=== PATIENT | female | born 1935 | race Two or more races ===

== ENCOUNTER 2016-11-06 20:14 | Observation (INO) | payer BC ==
--- NOTE | 2016-11-06 20:17 | PDOC ---
History of Present Illness - History of Present Illness Initial Comments: 11/06/16 20:57 The patient is an 81-year-old female, with a significant past medical history of HLD, who presents to the ED with AMS today. As per son, pt was sitting at the table in conversation with his when she suddenly became unresponsive and began to experience arm tremors. Ambulance was called. While on the way to the ER, the pts BS was measured to be 232 and her BP was 180/100. HPI is limited because pt is unresponsive. <Sarah Galloway - Last Filed: 11/06/16 20:59> <Estefani Warner - Last Filed: 11/06/16 23:14> - General Stated Complaint: POSSIBLE STROKE Time Seen by Provider: 11/06/16 20:17 Past History <Sarah Galloway - Last Filed: 11/06/16 20:59> - Past Medical History Hypercholesterolemia: Yes - Psycho/Social/Smoking Cessation Hx Anxiety: No Suicidal Ideation: No Smoking History: Never smoked Hx Alcohol Use: No Substance Use Type: None <Estefani Warner - Last Filed: 11/06/16 23:14> - Past Medical History Allergies/Adverse Reactions: Allergies Allergy/AdvReac Type Severity Reaction Status Date / Time No Known Allergies Allergy Verified 11/06/16 20:17 Home Medications: Ambulatory Orders Simvastatin [Zocor -] 20 mg PO DAILY 01/02/15 Zolpidem Tartrate [Ambien] 10 mg PO HS 11/06/16 Review of Systems - Review of Systems Able to Perform ROS?: No Comments:: 11/06/16 20:57 ROS unable to obtain because pt is unresponsive. <Sarah Galloway - Last Filed: 11/06/16 20:59> *Physical Exam - Vital Signs Last Vital Signs Temp Pulse Resp BP Pulse Ox 58 L 18 134/55 97 11/06/16 20:18 11/06/16 20:18 11/06/16 20:18 11/06/16 20:18 <Sarah Galloway - Last Filed: 11/06/16 20:59> - Physical Exam Comments: GENERAL: Somnolent. Responds to noxious stimuli. HEAD: No signs of trauma EYES: Pupils small but reactive, EOMI, sclera anicteric, conjunctiva clear ENT: Auricles normal inspection, hearing grossly normal, nares patent, oropharynx clear without exudates. Moist mucosa NECK: Normal ROM, supple, no lymphadenopathy, JVD, or masses LUNGS: Breath sounds equal, clear to auscultation bilaterally. No wheezes, and no crackles HEART: Regular rate and rhythm, normal S1 and S2, no murmurs, rubs or gallops ABDOMEN: Soft, nontender, normoactive bowel sounds. No guarding, no rebound. No masses EXTREMITIES: Normal range of motion, no edema. No clubbing or cyanosis. No cords, erythema, or tenderness NEUROLOGICAL: Limited by AMS. Pupils small but reactive. Withdraws all 4 limbs to noxious stimuli. SKIN: Warm, Dry, normal turgor, no rashes or lesions noted. <Estefani Warner - Last Filed: 11/06/16 23:14> ED Treatment Course - LABORATORY CBC & Chemistry Diagram: 11/06/16 20:48 11/06/16 20:48 - RADIOLOGY Radiology Studies Ordered: 11/06/16 21:[address] was reviewed by Dr. Warner and over-read by Radiology. Impression: No evidence of an acute intracranial process, intracranial hemorrhage or mass effect. <Sarah Galloway - Last Filed: 11/06/16 20:59> - LABORATORY CBC & Chemistry Diagram: 11/06/16 20:48 11/06/16 20:48 <Estefani Warner - Last Filed: 11/06/16 23:14> Medical Decision Making - Medical Decision Making 11/06/16 21:26 Reassessed. CTH reviewed, no acute findings. Patient is improving, clinically. She is speaking, awakens to voice. Will cont to monitor. Plan to admit for AMS- poss syncope vs seizure. <Estefani Warner - Last Filed: 11/06/16 23:14> *DC/Admit/Observation/Transfer - Attestations Scribe Attestion: 11/06/16 20:58 Documentation prepared by Sarah Galloway, acting as family practice medical doctor for Estefani Warner MD. <Sarah Galloway - Last Filed: 11/06/16 20:59> - Discharge Dispostion Admit: Yes <Estefani Warner - Last Filed: 11/06/16 23:14> Diagnosis at time of Disposition: Altered mental status Qualifiers: Altered mental status type: unspecified Qualified Code(s): R41.82 - Altered mental status, unspecified Syncope Qualifiers: Syncope type: unspecified Qualified Code(s): R55 - Syncope and collapse - Discharge Dispostion Condition at time of disposition: Stable - Referrals Referrals: Wander Gupta MD [Primary Care Provider] -
[2016-11-06 20:19] VITALS: BMI 18.3
[2016-11-06 20:55] LABS: MCH 28.9 pg (25.7-33.7); MEAN CELL VOLUME 87.8 fl (80-96); MEAN PLT VOLUME 8.5 fl (7.5-11.1); PLATELET COUNT 192 K/MM3 (134-434); RDW 14.5 % (11.6-15.6); WHITE BLOOD COUNT 7.5 K/mm3 (4.0-10.0)
[2016-11-06 21:16] LABS: INR 1.04 (0.82-1.09); PROTHROMBIN TIME (PATIENT) 11.5 SEC (9.98-11.88)
[2016-11-06 21:27] LABS: ALBUMIN 3.4 g/dl (3.4-5.0); ANION GAP 6 (8-16); CO2 31 mmol/L (21-32); COCKROFT - GAULT 33.9065; CREATININE 0.9 mg/dL (0.55-1.02); GLUCOSE,RANDOM 157 mg/dL (74-106); SGOT/AST 19 U/L (15-37); SGPT/ALT 14 U/L (12-78)
[2016-11-06 21:31] LABS: ALK PHOS 58 U/L (45-117); BILIRUBIN,TOTAL 0.3 mg/dL (0.2-1.0); TOT PROT 7.1 g/dl (6.4-8.2); TROPONIN I < 0.02 ng/ml (0.00-0.05)
[2016-11-06 23:21] LABS: URINE APPEARANCE CLEAR; URINE BILIRUBIN NEGATIVE (NEGATIVE); URINE BLOOD 1+ (NEGATIVE); URINE COLOR STRAW; URINE GLUCOSE (UA) 1+ (NEGATIVE); URINE KETONE NEGATIVE (NEGATIVE); URINE LEUK ESTERASE NEGATIVE (NEGATIVE); URINE NITRITE NEGATIVE (NEGATIVE); URINE PROTEIN NEGATIVE (NEGATIVE); URINE UROBILINOGEN NEGATIVE E.U./dl (0.2-1.0)
[2016-11-06 23:22] LABS: URINE WBC 1 /hpf (3-5)
[2016-11-07 07:12] LABS: BASOPHIL 1.3 % (0-2.0); EOSINOPHIL 9.1 % (0-4.5); MCH 29.6 pg (25.7-33.7); MEAN CELL VOLUME 87.1 fl (80-96); MEAN PLT VOLUME 8.3 fl (7.5-11.1); PLATELET COUNT 194 K/MM3 (134-434); RDW 14.5 % (11.6-15.6); WHITE BLOOD COUNT 7.9 K/mm3 (4.0-10.0)
[2016-11-07 08:13] LABS: ALBUMIN 3.2 g/dl (3.4-5.0); ALK PHOS 53 U/L (45-117); ANION GAP 8 (8-16); BILIRUBIN,TOTAL 0.5 mg/dL (0.2-1.0); CALCIUM 8.7 mg/dL (8.5-10.1); CO2 30 mmol/L (21-32); CREATININE 0.8 mg/dL (0.55-1.02); GLUCOSE,RANDOM 79 mg/dL (74-106); SGOT/AST 17 U/L (15-37); SGPT/ALT 16 U/L (12-78); TOT PROT 6.5 g/dl (6.4-8.2); TROPONIN I < 0.02 ng/ml (0.00-0.05)
--- NOTE | 2016-11-07 14:09 | EKG ---
Test Reason : Blood Pressure : / mmHG Vent. Rate : 051 BPM Atrial Rate : 051 BPM P-R Int : 184 ms QRS Dur : 096 ms QT Int : 410 ms P-R-T Axes : 077 -14 060 degrees QTc Int : 377 ms SINUS BRADYCARDIA LIKELY NORMAL ECG BORDERLINE ECG WHEN COMPARED WITH ECG OF 02-JAN-2015 14:30, NO SIGNIFICANT CHANGE WAS FOUND Confirmed by KALIA MARIANO MD ([id number]) on 11/07/2016 2:08:53 PM Referred By: Confirmed By:KALIA MARIANO MD
--- NOTE | 2016-11-07 14:56 | HP ---
Admitting History and Physical - Primary Care Physician PCP: Thomas Ramos - Admission Chief Complaint: change of ms. nassar ? History of Present Illness: 81-year-old female, with a significant past medical history of HLD, who presents to the ED with AMS today. As per son, pt was sitting at the table in conversation with his when she suddenly became unresponsive and began to experience arm tremors. Ambulance was called. While on the way to the ER, the pt s BS was measured to be 232 and her BP was 180/100. above history taken from er today pt is stable alert and oriented - Past Medical History Cardiovascular: Yes: Hyperlipdemia Psych: Yes: Depression - Smoking History Smoking history: Never smoked Have you smoked in the past 12 months: No - Alcohol/Substance Use Hx Alcohol Use: No Home Medications - Allergies Allergies/Adverse Reactions: Allergies Allergy/AdvReac Type Severity Reaction Status Date / Time No Known Allergies Allergy Verified 11/06/16 20:17 - Home Medications Home Medications: Ambulatory Orders Simvastatin [Zocor -] 20 mg PO DAILY 01/02/15 Zolpidem Tartrate [Ambien] 10 mg PO HS 11/06/16 Sertraline HCl [Zoloft -] 50 mg PO HS 11/07/16 Physical Examination Vital Signs: Vital Signs Temperature 97.1 F L 11/07/16 14:51 Pulse Rate 73 11/07/16 14:51 Respiratory Rate 18 11/07/16 14:51 Blood Pressure 108/60 11/07/16 14:51 O2 Sat by Pulse Oximetry (%) 100 11/07/16 14:20 Constitutional: Yes: No Distress HENT: Yes: Atraumatic Neck: Yes: Supple Cardiovascular: Yes: Regular Rate and Rhythm Respiratory: Yes: CTA Bilaterally Gastrointestinal: Yes: Normal Bowel Sounds Extremities: Yes: WNL Neurological: Yes: Alert, Oriented Labs: CBC, BMP 11/07/16 06:15 11/07/16 06:15 Imaging - Results Chest X-ray: Report Reviewed Cat Scan: Report Reviewed Problem List - Problems (1) Altered mental status Assessment/Plan: dooing well d/d medication seizure infetion r/o cardiac causes fu labs neuro consult Code(s): R41.82 - ALTERED MENTAL STATUS, UNSPECIFIED Qualifiers: Altered mental status type: unspecified Qualified Code(s): R41.82 - Altered mental status, unspecified (2) Syncope Assessment/Plan: d/d as above alert now Code(s): R55 - SYNCOPE AND COLLAPSE Qualifiers: Syncope type: unspecified Qualified Code(s): R55 - Syncope and collapse Assessment/Plan Laboratory Tests 11/06/16 11/06/16 11/06/16 20:48 20:48 20:48 WBC 7.5 RBC 4.21 Hgb 12.2 Hct 37.0 MCV 87.8 MCHC 33.0 RDW 14.5 Plt Count 192 MPV 8.5 Neutrophils % 52.0 Lymphocytes % 27.7 Monocytes % 9.3 Eosinophils % 10.0 H Basophils % 1.0 INR 1.04 Sodium 139 Potassium 3.5 Chloride 102 Carbon Dioxide 31 D Anion Gap 6 L BUN 21 H Creatinine 0.9 D Creat Clearance w eGFR 59.80 Random Glucose 157 H D Calcium 9.0 Total Bilirubin 0.3 D AST 19 D ALT 14 Alkaline Phosphatase 58 Creatine Kinase 51 Troponin I < 0.02 Total Protein 7.1 Albumin 3.4 Urine Color Urine Appearance Urine pH Urine Protein Urine Glucose (UA) Urine Ketones Urine Blood Urine Nitrite Urine Bilirubin Urine Urobilinogen Ur Leukocyte Esterase Urine RBC Urine WBC Ur Epithelial Cells 11/06/16 11/07/16 11/07/16 23:15 06:15 06:15 WBC 7.9 RBC 4.22 Hgb 12.5 Hct 36.7 MCV 87.1 MCHC 34.0 RDW 14.5 Plt Count 194 MPV 8.3 Neutrophils % 52.0 Lymphocytes % 28.5 Monocytes % 9.1 Eosinophils % 9.1 H Basophils % 1.3 INR Sodium 142 Potassium 4.2 Chloride 104 Carbon Dioxide 30 Anion Gap 8 BUN 19 H Creatinine 0.8 Creat Clearance w eGFR > 60 Random Glucose 79 D Calcium 8.7 Total Bilirubin 0.5 D AST 17 ALT 16 Alkaline Phosphatase 53 Creatine Kinase 45 Troponin I < 0.02 Total Protein 6.5 Albumin 3.2 L Urine Color Straw Urine Appearance Clear Urine pH 7.0 Urine Protein Negative Urine Glucose (UA) 1+ H Urine Ketones Negative Urine Blood 1+ H Urine Nitrite Negative Urine Bilirubin Negative Urine Urobilinogen Negative Ur Leukocyte Esterase Negative Urine RBC None Urine WBC 1 Ur Epithelial Cells Rare
--- NOTE | 2016-11-07 18:14 | CON.NEURO ---
Consult Consult Specialty:: Neurology - History of Present Illness History of Present Illness: 81-year-old female, with a significant past medical history of HLD, who presents to the ED with AMS today. As per son, pt was sitting at the table in conversation with his when she suddenly became unresponsive and began to experience arm tremors. Ambulance was called. While on the way to the ER, the pt s BS was measured to be 232 and her BP was 180/100. On further HX, patient states she accidentally took AMBIEN 2 x 10mg pills-- she thought she was taking her dementia RX. Now awake and at her baseline. No focal c/o. - History Source History Provided By: Patient, Family Member - Alcohol/Substance Use Hx Alcohol Use: No - Smoking History Smoking history: Never smoked Have you smoked in the past 12 months: No Home Medications - Allergies Allergies/Adverse Reactions: Allergies Allergy/AdvReac Type Severity Reaction Status Date / Time No Known Allergies Allergy Verified 11/06/16 20:17 - Home Medications Home Medications: Ambulatory Orders Simvastatin [Zocor -] 20 mg PO DAILY 01/02/15 Zolpidem Tartrate [Ambien] 10 mg PO HS 11/06/16 Sertraline HCl [Zoloft -] 50 mg PO HS 11/07/16 Review of Systems Unable to obtain ROS, reason: mild memory loss Physical Exam-Neuro Vital Signs: Vital Signs Temperature 98.3 F 11/07/16 18:00 Pulse Rate 65 11/07/16 18:00 Respiratory Rate 18 11/07/16 18:00 Blood Pressure 120/78 11/07/16 18:00 O2 Sat by Pulse Oximetry (%) 100 11/07/16 14:20 Constitutional: Yes: Well Nourished, No Distress Neck: Yes: WNL Cardiovascular: Yes: Regular Rate and Rhythm Respiratory: Yes: CTA Bilaterally Gastrointestinal: Yes: Normal Bowel Sounds Labs: CBC, BMP 11/07/16 06:15 11/07/16 06:15 INR, PTT INR 1.04 (0.82-1.09) 11/06/16 20:48 - Neuro Exam Level Of Consciousness: Yes: Alert, Oriented to Person, Oriented to Place Eyes: Yes: PERRLA Speech: WNL Mini Mental Exam: awake and conversive, follows 3 steps, no aphasia Babinski: Absent Response to pain prick: Normal Response to temperature: Normal Motor Strength: 5/5: Left Arm, Right Arm, Left Leg, Right Leg Gait: Deferred NIH Stroke Scale - Total Score NIH Stroke Scale Score: 0 Imaging - Results Cat Scan: Report Reviewed, Image Reviewed Problem List - Problems (1) Altered mental status Code(s): R41.82 - ALTERED MENTAL STATUS, UNSPECIFIED Qualifiers: Altered mental status type: unspecified Qualified Code(s): R41.82 - Altered mental status, unspecified (2) Syncope Code(s): R55 - SYNCOPE AND COLLAPSE Qualifiers: Syncope type: unspecified Qualified Code(s): R55 - Syncope and collapse Assessment/Plan 81-year-old female, with a significant past medical history of HLD, who presents to the ED with AMS today. As per son, pt was sitting at the table in conversation with his when she suddenly became unresponsive and began to experience arm tremors. Ambulance was called. While on the way to the ER, the pt s BS was measured to be 232 and her BP was 180/100. On further HX, patient states she accidentally took AMBIEN 2 x 10mg pills-- she thought she was taking her dementia RX. Now awake and at her baseline. No focal c/o. CT HD (-) Syncope/ unresponsive state- secondary to Medication Effect - Ambien, discussed med compliance. Family at bedside, and aware as well. she is neurolgically stable and can be Dc in AM. Dr Bond [phone]
[2016-11-07 20:18] VITALS: BP 125/59; PULSE 52; TEMP 98.1
--- NOTE | 2016-11-07 20:19 | DS ---
Physical Examination Vital Signs: Vital Signs Temperature 98.1 F 11/07/16 20:14 Pulse Rate 52 L 11/07/16 20:14 Respiratory Rate 18 11/07/16 20:14 Blood Pressure 125/59 11/07/16 20:14 O2 Sat by Pulse Oximetry (%) 100 11/07/16 20:14 Constitutional: Yes: No Distress HENT: Yes: Atraumatic Neck: Yes: Supple Cardiovascular: Yes: Regular Rate and Rhythm Respiratory: Yes: CTA Bilaterally Gastrointestinal: Yes: Normal Bowel Sounds Extremities: Yes: WNL Neurological: Yes: Alert, Oriented Labs: CBC, BMP 11/07/16 06:15 11/07/16 06:15 Discharge Summary Reason For Visit: SYNCOPE,ALTERED MENTAL STATUS Current Active Problems Altered mental status (Acute) Syncope (Acute) Condition: Stable - Instructions Referrals: Wander Gupta MD [Primary Care Provider] - Douglas Bond DO [Staff Physician] - - Home Medications Comprehensive Discharge Medication List: Ambulatory Orders Simvastatin [Zocor -] 20 mg PO DAILY 01/02/15 Sertraline HCl [Zoloft -] 50 mg PO HS 11/07/16 neuro note reviewed cleared to be dc pt is stable dc aram castellano pmd/neuro as out pt
[2016-11-07] MEDS ORDERED: SERTRALINE HCL 50 MG TABLET (FP) PO SCH (22:00)
[2016-11-07] MEDS ORDERED: ATORVASTATIN CA 10 MG TABLET (FP) PO SCH (22:00)
== END 2016-11-07 20:57 | disposition home or self-care (01) ==
LOC: JER 20:14 → INTOOBSV 23:14 → JERBED 23:14 → J4W 11-07 14:37
PROVIDERS: ADMIT Internal Medicine; ATTEND Internal Medicine
DX: R41.82 Altered mental status, unspecified (principal); R55 Syncope and collapse; E78.5 Hyperlipidemia, unspecified
CPT/HCPCS: 36415; 70450-TC; 71010-TC; 80053; 81003; 81015; 82550; 84484; 85025; 85610; 93005; 93010; 99282-25; G0378

== ENCOUNTER 2017-01-10 12:13 | Emergency (ER) | payer BC ==
--- NOTE | 2017-01-10 12:21 | PDOC ---
History of Present Illness - General Chief Complaint: Syncope/Near Syncope Stated Complaint: POSSIBLE SYNCOPE Time Seen by Provider: 01/10/17 12:20 - History of Present Illness Initial Comments: 01/10/17 14:12 Chief complaint: Loss of consciousness History of present illness: Patient was walking outside with her daughter, felt faint, collapsed in her daughter's arms, regaining consciousness in 2 or 3 minutes. No confusion or other mental status change after the episode, according to her daughter. However, the patient has no recall of the event. She did not fall, and consequently there were no injuries to the head or neck trunk or extremities. The patient has mild nausea at present but no other symptoms and denies pain. Review of systems: Denies lightheadedness, dizziness, vertigo, chest pain, shortness of breath, abdominal pain, vomiting, diarrhea, urinary tract symptoms , vaginal bleeding or discharge, decreased or blurred vision, visual or focal neurologic symptoms. Remainder systems reviewed and found to be negative Past medical history: Dementia. Elevated cholesterol. Mood disorder. On atorvastatin and Zoloft. Daughter denies any cardiac disease including ME, CVA, TIA, syncope, diabetes, or cancer Social history: Lives with her daughter's family, appetite and fluid intake appear to be adequate, no recent illnesses, no tobacco alcohol or nonprescription drugs Family history reviewed and noncontributory Physical exam: Mildly confused as to time and place but responsive and answers questions coherently. No distress. Afebrile, vital signs normal Head atraumatic. PERRLA, fundi benign, ENT clear Neck supple without bruit mass or nodes Chest clear to P&A with full breath sounds throughout bilaterally CV regular without murmur rub or gallop pulses full and symmetric no JVD or edema 61 and regular Abdomen soft nontender without mass or organomegaly. Nondistended, bowel sounds normal Neurological generalized weakness but no focal sensory or motor deficits. Cranial nerves intact. Extremities no CCE Skin clear, no rash, adequate turgor and wet mucous membranes Impression: Syncope, possibly vasovagal, rule out dehydration, orthostatic hypotension, acute neurologic or cardiac event Plan: EKG and enzymes, head CT, CBC and chemistries, observation and further medical treatment depending on results. Past History - Past Medical History Allergies/Adverse Reactions: Allergies Allergy/AdvReac Type Severity Reaction Status Date / Time No Known Allergies Allergy Verified 01/10/17 12:33 Home Medications: Ambulatory Orders Sertraline HCl [Zoloft -] 50 mg PO HS 11/07/16 Atorvastatin Ca [Lipitor] 20 mg PO HS 01/10/17 Hypercholesterolemia: Yes - Immunization History Immunization Up to Date: No - Psycho/Social/Smoking Cessation Hx Anxiety: No Suicidal Ideation: No Smoking History: Never smoked Have you smoked in the past 12 months: No Hx Alcohol Use: No Drug/Substance Use Hx: No Substance Use Type: None *Physical Exam - Vital Signs Last Vital Signs Temp Pulse Resp BP Pulse Ox 60 18 135/76 99 01/10/17 15:50 01/10/17 15:50 01/10/17 15:50 01/10/17 15:50 ED Treatment Course - LABORATORY CBC & Chemistry Diagram: 01/10/17 12:29 01/10/17 12:29 - ADDITIONAL ORDERS Additional order review: Laboratory Results 01/10/17 01/10/17 01/10/17 12:44 12:29 12:29 Sodium 135 L Potassium 3.6 Chloride 102 Carbon Dioxide 24 Anion Gap 9 BUN 25 H Creatinine 0.9 Creat Clearance w eGFR 59.80 Random Glucose 114 H Calcium 9.3 Total Bilirubin 0.8 AST 21 ALT 12 Alkaline Phosphatase 50 Creatine Kinase 38 Troponin I < 0.03 L Total Protein 7.1 Albumin 4.2 Urine Color Yellow Urine Appearance Clear Urine pH 7.0 Ur Specific Effort 1.020 Urine Protein Negative Urine Glucose (UA) Negative Urine Ketones Negative Urine Blood Negative Urine Nitrite Negative Urine Bilirubin Negative Urine Urobilinogen 0.2 Ur Leukocyte Esterase Negative 01/10/17 12:29 RBC 4.57 MCV 85.8 MCHC 33.5 RDW 13.6 MPV 9.1 Neutrophils % 38.6 L Lymphocytes % 47.9 H Monocytes % 8.8 Eosinophils % 3.9 Basophils % 0.8 - RADIOLOGY Radiology Studies Ordered: Category Date Time Status HEAD CT WITHOUT CONTRAST [CT] Stat CT Scan 01/10/17 12:44 Completed - Medications Given in the ED: ED Medications Discontinued Medications Generic Name Dose Route Start Last Admin Trade Name Freq PRN Reason Stop Dose Admin Sodium Chloride 500 mls @ 500 mls/hr 01/10/17 12:45 01/10/17 12:48 Normal Saline - IV 01/10/17 13:44 500 mls/hr ASDIR STA Administration Ondansetron HCl 4 mg 01/10/17 12:45 01/10/17 12:49 Zofran Injection IVPB 01/10/17 12:46 4 mg ONCE ONE Administration Medical Decision Making - Medical Decision Making 01/10/17 16:42 CT of the brain is negative Labs unremarkable except for elevated BUN, likely dehydration The patient is much more alert cheerful and cooperative after intravenous hydration. The nausea has resolved. She is interactive and engaging smiling and according to her daughter has normal mental status. Discharge fully ambulatory and in no pain or other distress to follow-up with primary physician or return to ER if there are any further symptoms *DC/Admit/Observation/Transfer Diagnosis at time of Disposition: Dehydration - Discharge Dispostion Disposition: HOME Condition at time of disposition: Improved Admit: No - Referrals Referrals: Wander Gupta MD [Primary Care Provider] - 24 hours - Patient Instructions Printed Discharge Instructions: DI for Dehydration -- Adult Additional Instructions: Return to ER if symptoms recur or any new symptoms develop including chest pain , shortness of breath, abdominal pain, nausea, vomiting, diarrhea, change in vision, numbness, tingling, pain, or weakness of the extremities. Otherwise see her primary physician in 24 hours for recheck.
[2017-01-10 12:28] VITALS: BMI 17.4
[2017-01-10] MEDS ORDERED: ONDANSETRON 4 MG/2 ML VIAL ONE (12:33)
[2017-01-10] MEDS ORDERED: ONDANSETRON 4 MG/2 ML VIAL IVPB ONE (12:45)
[2017-01-10] MEDS ORDERED: SODIUM CHLORIDE 500 ML IV STA (12:45)
[2017-01-10 13:04] LABS: BASOPHIL 0.8 % (0-2.0); EOSINOPHIL 3.9 % (0-4.5); MCH 28.8 pg (25.7-33.7); MCHC 33.5 g/dl (32.0-36.0); MEAN CELL VOLUME 85.8 fl (80-96); MEAN PLT VOLUME 9.1 fl (7.5-11.1); NEUTROPHILS 38.6 % (42.8-82.8); PLATELET COUNT 208 K/MM3 (134-434); RDW 13.6 % (11.6-15.6); WHITE BLOOD COUNT 8.5 K/mm3 (4.0-10.8)
[2017-01-10 13:20] LABS: ALBUMIN 4.2 g/dl (3.5-5.0); ALK PHOS 50 U/L (32-92); ANION GAP 9 (8-16); BILIRUBIN,TOTAL 0.8 mg/dl (0.2-1.0); CALCIUM 9.3 mg/dl (8.4-10.2); CO2 24 mmol/L (22-28); CPK 38 IU/L (26-192); CREATININE 0.9 mg/dl (0.6-1.3); GLUCOSE,RANDOM 114 mg/dl (74-106); SGOT/AST 21 U/L (10-42); SGPT/ALT 12 U/L (10-40); TOT PROT 7.1 g/dl (6.4-8.3)
[2017-01-10 15:50] VITALS: BP 135/76; PULSE 60
[2017-01-10 16:33] LABS: URINE APPEARANCE Clear; URINE BILIRUBIN Negative (NEGATIVE); URINE BLOOD Negative (NEGATIVE); URINE GLUCOSE (UA) Negative (NEGATIVE); URINE KETONE Negative (NEGATIVE); URINE LEUK ESTERASE Negative (NEGATIVE); URINE NITRITE Negative (NEGATIVE); URINE PROTEIN Negative (NEGATIVE); URINE UROBILINOGEN 0.2 (0.2-1.0)
[2017-01-10 16:34] LABS: URINE COLOR YELLOW
[2017-01-10 17:26] LABS: TROPONIN I (DFP) < 0.03 ng/ml (0.03-0.50)
--- NOTE | 2017-01-11 09:56 | EKG ---
Test Reason : Blood Pressure : / mmHG Vent. Rate : 061 BPM Atrial Rate : 061 BPM P-R Int : 152 ms QRS Dur : 086 ms QT Int : 422 ms P-R-T Axes : 043 009 052 degrees QTc Int : 424 ms SINUS RHYTHM NORMAL ECG WHEN COMPARED WITH ECG OF 06-NOV-2016 21:16, INCOMPLETE RIGHT BUNDLE BRANCH BLOCK IS NO LONGER PRESENT Confirmed by CORAZON JEAN BAPTISTE MD ([id number] on 01/11/2017 9:55:40 AM Referred By: DOMO DENTON Confirmed By:CORAZON JEAN BAPTISTE MD
== END 2017-01-10 16:04 | disposition home or self-care (01) ==
LOC: FER 12:13
PROC: 3E033GC Introduction of Other Therapeutic Substance into Peripheral Vein, Percutaneous Approach (ICD-10-PCS; principal; 2017-01-10)
PROC: 3E0337Z Introduction of Electrolytic and Water Balance Substance into Peripheral Vein, Percutaneous Approach (ICD-10-PCS; 2017-01-10)
DX: E86.0 Dehydration (principal); F03.90 Unspecified dementia, unspecified severity, without behavioral disturbance, psychotic disturbance, mood disturbance, and anxiety; F39 Unspecified mood [affective] disorder; E78.00 Pure hypercholesterolemia, unspecified
CPT/HCPCS: 36415; 70450-TC; 80053; 81003; 84484; 85025; 87086; 93005; 96361; 96374; 99284-25

== ENCOUNTER 2018-06-26 17:45 | Emergency (ER) | payer BC ==
[2018-06-26 17:57] VITALS: BP 142/71; PULSE 69; TEMP 98.2; BMI 17.4
--- NOTE | 2018-06-26 18:29 | PDOC ---
Attending Attestation - Resident Resident Name: JaydaJenny - ED Attending Attestation I have performed the following: I have examined & evaluated the patient, The case was reviewed & discussed with the resident, I agree w/resident's findings & plan, Exceptions are as noted - HPI HPI: 06/26/18 18:28 83yo F hx HTN, dementia, chronic constipation presents to the ED with constipation. Pt has 1 BM weekly on average but has not been able to go for 8 days. Pt denies any abd pain, N/V. Pt was straining very hard today which is what prompted the ED visit. No rectal bleeding. No fevers, chills. No dysuria, frequency, or urgency. Family has tried metamucil and suppositories every 3 days or so. Pt is not on a daily regimen for her constipation. Daughter states they have not taken her to the PMD for the constipation as they are not happy with the PMD. While in the ED, the pt had soft BM in her diaper. No recent CP, SOB, focal weakness/numbness, back pain, headache, LE edema. - Physicial Exam PE: 06/26/18 18:53 GENERAL: Awake, alert, in no acute distress. Very pleasant. EYES: PERRLA, EOMI, sclera anicteric, conjunctiva clear ENT: Nares patent, oropharynx clear without exudates. Moist mucosa NECK: Normal ROM, supple, no lymphadenopathy, JVD, or masses LUNGS: Breath sounds equal, clear to auscultation bilaterally. No wheezes, and no crackles HEART: Regular rate and rhythm, normal S1 and S2, no murmurs, rubs or gallops ABDOMEN: Soft, nontender, normoactive bowel sounds. No guarding, no rebound. No masses palpated. EXTREMITIES: Normal range of motion, no edema. No cords, erythema, or tenderness NEUROLOGICAL: Normal speech, cranial nerves intact, equal strength and sensation b/l SKIN: Warm, Dry, normal turgor, no rashes or lesions noted. - Medical Decision Making 06/26/18 18:55 83yo F with MMP including chronic constipation presents to the ED with constipation. Vitals wnl. Exam with soft, non tender abdomen. REctal exam with soft stool in the vault, no impaction. Plan for XR to r/o obstruction, reassess. Will prescribe pt senna/colace as well as Mg citrate. 06/26/18 18:59 XR pending. Case signed out to overnight attending for further mgmt/dispo.
--- NOTE | 2018-06-26 18:39 | PDOC ---
History of Present Illness - General Chief Complaint: Constipation Stated Complaint: CONSTIPATED - History of Present Illness Initial Comments: Angelique Carcamo is an 83yo woman with a PMH of HTN, dementia, and chronic constipation who presents with her daughter today reporting constipation. The daughter provides most of her history. Per the daughter, Ms Carcamo has had constipation for over one year. She has a BM only about once per week. They have tried multiple medications at home, but per the daughter they only use them occasionally. They use miralax every 2-3 days and sometimes use suppositories. They were concerned about over-medicating her and did not want to use anything every day. However, the daughter was very concerned that Ms Carcamo appeared to be in pain. She tried to make an appointment with GI today but could not schedule anything immediately, o they brought her to the ED. Past History - Past Medical History Allergies/Adverse Reactions: Allergies Allergy/AdvReac Type Severity Reaction Status Date / Time No Known Allergies Allergy Verified 01/10/17 12:33 Home Medications: Ambulatory Orders Sertraline HCl [Zoloft -] 50 mg PO HS 11/07/16 Atorvastatin Ca [Lipitor] 20 mg PO HS 01/10/17 COPD: No HTN: Yes Hypercholesterolemia: Yes Other medical history: DEMENTIA - Immunization History Immunization Up to Date: No - Suicide/Smoking/Psychosocial Hx Smoking History: Never smoked Have you smoked in the past 12 months: No Information on smoking cessation initiated: No Hx Alcohol Use: No Drug/Substance Use Hx: No Substance Use Type: None Review of Systems - Review of Systems Comments:: General: No fevers, no chills, no weight or appetite change, no malaise HEENT: No changes in vision, no changes in hearing, no congestion, no sore throat CV: No chest pain, no palpitations, no LE edema Pulm: No SOB, no cough, no wheezing GI: No nausea or vomiting, +chronic constipation, no melena : No frequency, no urgency, no dysuria Musc: No back pain, no joint swelling, no recent injury Skin: No rash, no lesions, no erythema Endo: No excessive thirst, no heat/cold intolerance Heme: No unusual bruising or bleeding, no swollen glands Neuro: No syncope, no numbness/tingling, no focal weakness Vasc: No claudication Psych: No recent change in mood, no SI or HI *Physical Exam - Vital Signs Last Vital Signs Temp Pulse Resp BP Pulse Ox 98.2 F 69 16 142/71 100 06/26/18 17:46 06/26/18 17:46 06/26/18 17:46 06/26/18 17:46 06/26/18 17:46 - Physical Exam Comments: General: Comfortable, no acute distress HEENT: PERRL, EOMI, MMM, voice normal, normal neck ROM, no LAD Cards: RRR, no murmur appreciated Pulm: Comfortable on room air, clear to auscultation bilaterally Abd: Soft, nontender, nondistended : No CVA tenderness Rectal: Normal tone, no blood noted, no perianal lesions. Had small BM, soft light brown stool noted in underwear. No palpable hard stool or mass on rectal exam. Ext: Atraumatic. No LE edema. ROM intact. Strength 5/5 and equal bilaterally Vasc: Extremities WWP. Palpable radial and pedal pulses bilaterally Skin: Normal color, no rashes or lesions Neuro: A&Ox3, CN grossly intact, normal speech, motor/sensory grossly intact and symmetric Psych: Mood appropriate to situation Moderate Sedation - Procedure Monitoring Vital Signs: Procedure Monitoring Vital Signs Temperature 98.2 F 06/26/18 17:46 Pulse Rate 69 06/26/18 17:46 Respiratory Rate 16 06/26/18 17:46 Blood Pressure 142/71 06/26/18 17:46 O2 Sat by Pulse Oximetry (%) 100 06/26/18 17:46 Medical Decision Making - Medical Decision Making 06/26/18 18:39 Angelique Carcamo is an 83yo woman with a PMH of mild dementia, HTN, and chronic constipation who presents reporting constipation and abdominal pain today. - Had BM while in the ED. Abdomen soft and nontender. No palpable obstruction on rectal exam - Will check abd xray to r/o obvious stool burden or abnormality - WIll likely d/c home with PMD follow up and bowel regimen 06/26/18 19:41 - Xray to be completed - Signed out to Dr Adam for remainder of ED care. Discussed with Dr Calix. Jenny Montelongo PGY1 *DC/Admit/Observation/Transfer Diagnosis at time of Disposition: Constipation - Discharge Dispostion Condition at time of disposition: Fair - Referrals Referrals: Alejandro Monae MD [Staff Physician] - - Patient Instructions Printed Discharge Instructions: DI for Constipation Additional Instructions: Discharge Instructions: - You were seen in the emergency department for constipation. - You have been prescribed docusate (colace) and senna. These should be taken every day. If you do not have regular bowel movements after 2-3 days, you may add Miralax or Metamucil daily. These can be bought at any pharmacy and are available over the counter. - Make sure you are drinking plenty of water, at least 6-8 cups per day ideally. - You should follow up with your primary doctor within the next 2-3 days for evaluation and to help you adjust medications for your constipation. - Post Discharge Activity
--- NOTE | 2018-06-26 20:07 | PDOC ---
*Physical Exam - Vital Signs Last Vital Signs Temp Pulse Resp BP Pulse Ox 98.2 F 69 16 142/71 100 06/26/18 17:46 06/26/18 17:46 06/26/18 17:46 06/26/18 17:46 06/26/18 17:46 Progress Note - Progress Note Progress Note: Care of this patient received from . Flat and upright abdominal x-ray reveals no evidence of small bowel obstruction. Patient subsequently had 3 soft bowel movements while awaiting results of the x- ray. She was otherwise stable without development of new complaints. Patient discharged with instructions to continue stool softeners daily with MiraLAX/Metamucil as needed if constipation recurs. She will follow-up with her doctor or return to the emergency room if she has abdominal pain/severe, persistent constipation or develops vomiting/fever *DC/Admit/Observation/Transfer Diagnosis at time of Disposition: Constipation - Discharge Dispostion Disposition: HOME Condition at time of disposition: Improved - Referrals Referrals: Alejandro Monae MD [Staff Physician] - - Patient Instructions Printed Discharge Instructions: DI for Constipation Additional Instructions: Discharge Instructions: - You were seen in the emergency department for constipation. - You have been prescribed docusate (colace) and senna. These should be taken every day. If you do not have regular bowel movements after 2-3 days, you may add Miralax or Metamucil daily. These can be bought at any pharmacy and are available over the counter. - Make sure you are drinking plenty of water, at least 6-8 cups per day ideally. - You should follow up with your primary doctor within the next 2-3 days for evaluation and to help you adjust medications for your constipation. - Post Discharge Activity
== END 2018-06-26 21:36 | disposition home or self-care (01) ==
LOC: FER 17:45
DX: K59.00 Constipation, unspecified (principal); I10 Essential (primary) hypertension; F03.90 Unspecified dementia, unspecified severity, without behavioral disturbance, psychotic disturbance, mood disturbance, and anxiety
CPT/HCPCS: 74019-TC-FY; 99282-25

== ENCOUNTER 2018-07-10 11:04 | Inpatient (IN) | payer BC | END 2018-07-15 13:33 | disposition home or self-care (01) | LOC: FER 11:04 → FM/S 14:05 ==

== ENCOUNTER 2021-06-22 18:20 | Inpatient (IN) | payer BC, OTHER ==
[2021-06-22 18:42] VITALS: BMI 18.3
[2021-06-22 20:28] LABS: ALBUMIN 3.4 g/dl (3.4-5.0); BILIRUBIN,TOTAL 0.7 mg/dl (0.2-1); CALCIUM 8.4 mg/dl (8.5-10); CREATININE 1.4 mg/dl (0.55-1.3); TOT PROT 6.7 g/dl (6.4-8.2)
[2021-06-22 20:42] LABS: EPITHELIAL CELLS FEW /hpf
[2021-06-22] MEDS ORDERED: CEFTRIAXONE 1,000 MG in DEXTROSE 5%-WATER - 50 ML IVPB ONE (21:43)
[2021-06-22] MEDS ORDERED: ACETAMINOPHEN 1000 MG/100 ML BAG IVPB ONE (21:43)
[2021-06-22] MEDS ORDERED: cefTRIAXone SODIUM 1 GM VIAL ONE (21:47)
[2021-06-22] MEDS ORDERED: ACETAMINOPHEN INJECTION 100 ML IVPB ONE (21:47)
[2021-06-22 21:53] LABS: BASO % 0.6 % (0-2.0); EOS % 0.2 % (0-4.5); HEMATOCRIT 31.9 % (32.4-45.2); HEMOGLOBIN 10.7 GM/dL (10.7-15.3); LYMPH % 39.1 % (8-40); MCH 29.6 pg (25.7-33.7); MCHC 33.6 g/dl (32.0-36.0); MEAN CELL VOLUME 88.1 fl (80-96); MEAN PLT VOLUME 9.2 fl (7.5-11.1); MONO % 11.5 % (3.8-10.2); NEUT % 48.6 % (42.8-82.8); PLATELET COUNT 156 10^3/uL (134-434); RBC 3.63 M/mm3 (3.60-5.2); RDW 14.1 % (11.6-15.6); WHITE BLOOD COUNT 4.5 K/mm3 (4.0-10.0)
[2021-06-23] MEDS ORDERED: POLYETHYLENE GLYCOL (HEALTHYLAX) 3350 17 GM PACKET PO PRN (02:51)
[2021-06-23] MEDS ORDERED: ALBUTEROL SO4 HFA INHALER IH PRN (02:51)
[2021-06-23] MEDS ORDERED: TRIMETHOBENZAMIDE HCL 200MG/2ML INJ IM PRN (02:51)
[2021-06-23] MEDS ORDERED: DEXTROSE 5%-NORMAL SALINE 1,000 ML IV SCH (03:00)
[2021-06-23] MEDS ORDERED: HALOPERIDOL LACTATE 5 MG/ML IM ONE (04:22)
[2021-06-23] MEDS ORDERED: HALOPERIDOL LACTATE 5 MG/ML ONE (04:28)
[2021-06-23] MEDS ORDERED: HEPARIN NA (PORCINE) 5,000 UNITS/ML 1ML VIAL ONE (04:44)
[2021-06-23 07:40] LABS: CALCIUM 7.5 mg/dl (8.5-10)
[2021-06-23 07:49] LABS: HEMOGLOBIN 10.7 GM/dL (10.7-15.3); MCH 28.9 pg (25.7-33.7); MCHC 32.6 g/dl (32.0-36.0); MEAN CELL VOLUME 88.7 fl (80-96); PLATELET COUNT 147 10^3/uL (134-434); RBC 3.72 M/mm3 (3.60-5.2); RDW 13.9 % (11.6-15.6); WHITE BLOOD COUNT 4.1 K/mm3 (4.0-10.0)
[2021-06-23 07:52] LABS: ACTIVATED PTT 26.2 SECONDS (25.2-36.5)
[2021-06-23 07:56] LABS: INR 1.03 (0.83-1.09); PROTHROMBIN TIME (PATIENT) 11.4 SEC (9.7-13.0)
[2021-06-23] MEDS ORDERED: REMDESIVIR 200 MG in SODIUM CHLORIDE 250 ML IVPB ONE (15:00)
[2021-06-23] MEDS: HEPARIN NA (PORCINE) 5,000 UNITS/ML 1ML VIAL SQ SCH ×3 (18:12→22:42)
[2021-06-23] MEDS: LISINOPRIL 10 MG TABLET PO SCH (18:13)
[2021-06-23] MEDS: CHOLECALCIFEROL (VIT D3) 1,000 UNIT (25 MCG) TABLET PO SCH (18:14)
[2021-06-23] MEDS: DEXTROSE 5%-NORMAL SALINE 1,000 ML IV SCH (18:14)
[2021-06-23] MEDS: ASCORBIC ACID 500 MG TABLET (FP) PO SCH ×2 (18:14→22:19)
[2021-06-23] MEDS: ACETAMINOPHEN 325 MG TABLET (FP) PO PRN (18:16)
[2021-06-23] MEDS ORDERED: cefTRIAXone SODIUM 1 GM VIAL ONE (22:06)
[2021-06-23] MEDS ORDERED: DEXTROSE 5%-WATER - 50 ML IVPB ONE (22:06)
[2021-06-23] MEDS: CEFTRIAXONE 1 GM in DEXTROSE 5%-WATER - 50 ML IVPB SCH (22:18)
[2021-06-24] MEDS: HEPARIN NA (PORCINE) 5,000 UNITS/ML 1ML VIAL SQ SCH ×2 (06:34→14:37)
[2021-06-24] MEDS: ASCORBIC ACID 500 MG TABLET (FP) PO SCH ×2 (09:48→22:58)
[2021-06-24] MEDS: CHOLECALCIFEROL (VIT D3) 1,000 UNIT (25 MCG) TABLET PO SCH (09:48)
[2021-06-24] MEDS: LISINOPRIL 10 MG TABLET PO SCH (09:48)
[2021-06-24] MEDS: ACETAMINOPHEN 325 MG TABLET (FP) PO PRN (09:48)
[2021-06-24] MEDS: DEXTROSE 5%-NORMAL SALINE 1,000 ML IV SCH ×2 (09:53→14:37)
[2021-06-24 11:15] LABS: BASO % 0.6 % (0-2.0); HEMATOCRIT 33.1 % (32.4-45.2); LYMPH % 44.9 % (8-40); MCH 29.1 pg (25.7-33.7); MCHC 33.3 g/dl (32.0-36.0); MEAN CELL VOLUME 87.4 fl (80-96); MONO % 10.3 % (3.8-10.2); NEUT % 44.2 % (42.8-82.8); PLATELET COUNT 158 10^3/uL (134-434); RBC 3.79 M/mm3 (3.60-5.2); RDW 13.7 % (11.6-15.6); WHITE BLOOD COUNT 3.2 K/mm3 (4.0-10.0)
[2021-06-24 11:54] LABS: ALBUMIN 2.8 g/dl (3.4-5.0); BLOOD UREA NITROGEN 16.7 mg/dL (7-18); CREATININE 0.9 mg/dL (0.55-1.3)
[2021-06-24 11:55] LABS: CALCIUM 7.8 mg/dL (8.5-10.1)
[2021-06-24 11:56] LABS: BILIRUBIN,TOTAL 0.2 mg/dL (0.2-1)
[2021-06-24] MEDS: POLYETHYLENE GLYCOL (HEALTHYLAX) 3350 17 GM PACKET PO SCH ×2 (14:39→22:57)
[2021-06-24] MEDS ORDERED: DEXTROSE 5%-WATER - 50 ML IVPB ONE (20:58)
[2021-06-24] MEDS ORDERED: cefTRIAXone SODIUM 1 GM VIAL ONE (20:58)
[2021-06-24] MEDS: CEFTRIAXONE 1 GM in DEXTROSE 5%-WATER - 50 ML IVPB SCH (22:51)
[2021-06-24] MEDS: SENNOSIDES 8.6MG TABLET (FP) PO SCH (22:58)
[2021-06-25 11:02] LABS: HEMATOCRIT 34.9 % (32.4-45.2); MCH 29.8 pg (25.7-33.7); MCHC 34.4 g/dl (32.0-36.0); MEAN CELL VOLUME 86.5 fl (80-96); MEAN PLT VOLUME 8.4 fl (7.5-11.1); PLATELET COUNT 173 10^3/uL (134-434); RBC 4.04 M/mm3 (3.60-5.2); RDW 13.9 % (11.6-15.6); WHITE BLOOD COUNT 3.6 K/mm3 (4.0-10.0)
[2021-06-25] MEDS: ENOXAPARIN NA (PORCINE) 40 MG/0.4 ML DISP.SYRIN SQ SCH (11:24)
[2021-06-25] MEDS: SENNOSIDES 8.6MG TABLET (FP) PO SCH ×2 (11:25→22:48)
[2021-06-25] MEDS: LISINOPRIL 10 MG TABLET PO SCH (11:25)
[2021-06-25] MEDS: ASCORBIC ACID 500 MG TABLET (FP) PO SCH ×2 (11:25→22:48)
[2021-06-25] MEDS: CHOLECALCIFEROL (VIT D3) 1,000 UNIT (25 MCG) TABLET PO SCH (11:25)
[2021-06-25] MEDS: POLYETHYLENE GLYCOL (HEALTHYLAX) 3350 17 GM PACKET PO SCH ×2 (11:25→22:48)
[2021-06-25 11:34] LABS: ALBUMIN 2.8 g/dl (3.4-5.0); BLOOD UREA NITROGEN 16.4 mg/dL (7-18); CALCIUM 7.6 mg/dL (8.5-10.1); MAGNESIUM 2.2 mg/dL (1.8-2.4)
[2021-06-25 11:37] LABS: CREATININE 0.8 mg/dL (0.55-1.3)
[2021-06-25 11:39] LABS: BILIRUBIN,TOTAL 0.4 mg/dL (0.2-1); TOT PROT 6.2 g/dl (6.4-8.2)
[2021-06-25] MEDS: DEXTROSE 5%-NORMAL SALINE 1,000 ML IV SCH (21:09)
[2021-06-25] MEDS ORDERED: cefTRIAXone SODIUM 1 GM VIAL ONE (22:28)
[2021-06-25] MEDS ORDERED: DEXTROSE 5%-WATER - 50 ML IVPB ONE (22:28)
[2021-06-25] MEDS: CEFTRIAXONE 1 GM in DEXTROSE 5%-WATER - 50 ML IVPB SCH (22:48)
[2021-06-26] MEDS: ASCORBIC ACID 500 MG TABLET (FP) PO SCH ×2 (10:30→22:29)
[2021-06-26] MEDS: SENNOSIDES 8.6MG TABLET (FP) PO SCH ×2 (10:30→22:29)
[2021-06-26] MEDS: ENOXAPARIN NA (PORCINE) 40 MG/0.4 ML DISP.SYRIN SQ SCH (10:31)
[2021-06-26] MEDS: CHOLECALCIFEROL (VIT D3) 1,000 UNIT (25 MCG) TABLET PO SCH (10:31)
[2021-06-26] MEDS: POLYETHYLENE GLYCOL (HEALTHYLAX) 3350 17 GM PACKET PO SCH ×3 (10:31→22:29)
[2021-06-26] MEDS: LISINOPRIL 10 MG TABLET PO SCH (10:31)
[2021-06-26] MEDS: DEXTROSE 5%-NORMAL SALINE 1,000 ML IV SCH ×3 (10:37→20:48)
[2021-06-26 14:37] LABS: BASO % 0.4 % (0-2.0); EOS % 0.7 % (0-4.5); HEMATOCRIT 33.5 % (32.4-45.2); HEMOGLOBIN 11.2 GM/dL (10.7-15.3); LYMPH % 45.4 % (8-40); MCHC 33.4 g/dl (32.0-36.0); MEAN CELL VOLUME 86.8 fl (80-96); MEAN PLT VOLUME 8.1 fl (7.5-11.1); NEUT % 42.5 % (42.8-82.8); PLATELET COUNT 197 10^3/uL (134-434); RBC 3.85 M/mm3 (3.60-5.2); RDW 13.9 % (11.6-15.6); WHITE BLOOD COUNT 3.6 K/mm3 (4.0-10.0)
[2021-06-26 14:45] LABS: INR 1.23 (0.83-1.09); PROTHROMBIN TIME (PATIENT) 14.2 SEC (9.7-13.0)
[2021-06-26 14:48] LABS: ACTIVATED PTT 33.7 SECONDS (25.2-36.5)
[2021-06-26 14:54] LABS: CALCIUM 7.6 mg/dL (8.5-10.1)
[2021-06-26 14:55] LABS: ALBUMIN 2.6 g/dl (3.4-5.0); BLOOD UREA NITROGEN 9.9 mg/dL (7-18); MAGNESIUM 2.1 mg/dL (1.8-2.4)
[2021-06-26 14:58] LABS: CREATININE 0.8 mg/dL (0.55-1.3); PHOSPHOROUS 1.8 mg/dL (2.5-4.9)
[2021-06-26 14:59] LABS: TOT PROT 5.7 g/dl (6.4-8.2)
[2021-06-26 15:00] LABS: BILIRUBIN,TOTAL 0.2 mg/dL (0.2-1)
[2021-06-26] MEDS ORDERED: POTASSIUM CHLORIDE TABS 20 MEQ TABLET.ER (FP) PO ONE (16:05)
[2021-06-26] MEDS ORDERED: DEXTROSE 5%-WATER - 50 ML IVPB ONE (22:24)
[2021-06-26] MEDS ORDERED: cefTRIAXone SODIUM 1 GM VIAL ONE (22:24)
[2021-06-26] MEDS: CEFTRIAXONE 1 GM in DEXTROSE 5%-WATER - 50 ML IVPB SCH (22:29)
[2021-06-27] MEDS: DEXTROSE 5%-NORMAL SALINE 1,000 ML IV SCH ×2 (07:10→18:11)
[2021-06-27] MEDS: ENOXAPARIN NA (PORCINE) 40 MG/0.4 ML DISP.SYRIN SQ SCH (10:21)
[2021-06-27] MEDS: POLYETHYLENE GLYCOL (HEALTHYLAX) 3350 17 GM PACKET PO SCH ×2 (10:34→21:50)
[2021-06-27] MEDS: LISINOPRIL 10 MG TABLET PO SCH (10:35)
[2021-06-27] MEDS: CHOLECALCIFEROL (VIT D3) 1,000 UNIT (25 MCG) TABLET PO SCH (10:35)
[2021-06-27] MEDS: ASCORBIC ACID 500 MG TABLET (FP) PO SCH ×2 (10:35→22:28)
[2021-06-27] MEDS: SENNOSIDES 8.6MG TABLET (FP) PO SCH ×2 (13:07→21:50)
[2021-06-27] MEDS ORDERED: DEXTROSE 5%-WATER - 50 ML IVPB ONE (21:54)
[2021-06-27] MEDS ORDERED: cefTRIAXone SODIUM 1 GM VIAL ONE (21:54)
[2021-06-27] MEDS: CEFTRIAXONE 1 GM in DEXTROSE 5%-WATER - 50 ML IVPB SCH (22:28)
[2021-06-28] MEDS: DEXTROSE 5%-NORMAL SALINE 1,000 ML IV SCH ×2 (04:13→14:03)
[2021-06-28 09:28] LABS: BASO % 0.5 % (0-2.0); HEMOGLOBIN 10.6 GM/dL (10.7-15.3); LYMPH % 35.7 % (8-40); MCH 28.7 pg (25.7-33.7); MCHC 33.1 g/dl (32.0-36.0); MEAN CELL VOLUME 86.8 fl (80-96); MONO % 12.6 % (3.8-10.2); NEUT % 49.2 % (42.8-82.8); PLATELET COUNT 218 10^3/uL (134-434); RBC 3.68 M/mm3 (3.60-5.2); WHITE BLOOD COUNT 4.1 K/mm3 (4.0-10.0)
[2021-06-28 10:01] LABS: CALCIUM 7.7 mg/dL (8.5-10.1)
[2021-06-28 10:02] LABS: BLOOD UREA NITROGEN 4.6 mg/dL (7-18)
[2021-06-28 10:05] LABS: CREATININE 0.8 mg/dL (0.55-1.3); PHOSPHOROUS 2.5 mg/dL (2.5-4.9)
[2021-06-28] MEDS: ENOXAPARIN NA (PORCINE) 40 MG/0.4 ML DISP.SYRIN SQ SCH (10:08)
[2021-06-28] MEDS: LISINOPRIL 10 MG TABLET PO SCH (10:08)
[2021-06-28] MEDS: CHOLECALCIFEROL (VIT D3) 1,000 UNIT (25 MCG) TABLET PO SCH (10:08)
[2021-06-28] MEDS: POLYETHYLENE GLYCOL (HEALTHYLAX) 3350 17 GM PACKET PO SCH (10:09)
[2021-06-28] MEDS: SENNOSIDES 8.6MG TABLET (FP) PO SCH (10:09)
[2021-06-28] MEDS: ASCORBIC ACID 500 MG TABLET (FP) PO SCH (10:09)
[2021-06-28] MEDS: KCL 10 MEQ IVPB 10 MEQ/100 ML INFUS.BAG IVPB SCH ×2 (12:34→14:03)
[2021-06-28 14:05] VITALS: BP 140/85; PULSE 76; TEMP 98
== END 2021-06-28 18:57 | disposition left against medical advice (07) | DRG 689 ==
LOC: FER 18:20 → J5S 06-23 11:14
PROVIDERS: ADMIT Hospitalist
DX: N39.0 Urinary tract infection, site not specified (principal); G93.41 Metabolic encephalopathy; U07.1 COVID-19; N17.9 Acute kidney failure, unspecified; E87.1 Hypo-osmolality and hyponatremia; Z68.1 Body mass index [BMI] 19.9 or less, adult; I10 Essential (primary) hypertension; E78.5 Hyperlipidemia, unspecified; F03.90 Unspecified dementia, unspecified severity, without behavioral disturbance, psychotic disturbance, mood disturbance, and anxiety; B96.20 Unspecified Escherichia coli [E. coli] as the cause of diseases classified elsewhere; F32.A Depression, unspecified; R62.7 Adult failure to thrive; E86.0 Dehydration
CPT/HCPCS: 36415; 71045-TC-FY; 80048; 80053; 81003; 81015; 82550; 82728; 83605; 83615; 83735; 84100; 84484; 85025; 85027; 85379; 85610; 85730; 86140; 87040; 87086; 87186; 93005; 97116-GP; 97161-GP; 99285-25; C9399; C9803; J0131; J1644; U0003; U0005